=== PATIENT | female | born 1990 | race Hispanic/Latino ===

== ENCOUNTER 2017-02-18 23:57 | Inpatient (IN) | payer BC ==
[2017-02-19 00:19] VITALS: BMI 38.0
[2017-02-19] MEDS ORDERED: HYDROcodone/Acetaminophen 5/325 mg Tablet PO PRN ×2 (01:22)
[2017-02-19] MEDS ORDERED: Ibuprofen 800 MG TAB PO PRN (01:22)
[2017-02-19] MEDS ORDERED: Promethazine HCl 25 MG/ML VIAL IM PRN ×2 (01:22→04:18)
[2017-02-19] MEDS ORDERED: Lidocaine 1% (PF) 30 ML VIAL SC PRN (01:22)
[2017-02-19] MEDS ORDERED: Ondansetron HCl/PF 4 MG/2 ML Vial IVP PRN ×3 (01:22→19:10)
[2017-02-19 01:35] LABS: Hematocrit 41.8 % (36.0-47.0); Mean Platelet Volume 9.3 fL (7.4-10.4); Red Blood Cell (RBC) Count 4.55 mill/uL (4.20-5.40); White Blood Cell (WBC) Count 9.7 thou/uL (4.8-10.8)
[2017-02-19] MEDS: Lactated Ringer's 1,000 ML IV SCH ×8 (01:40→19:09)
[2017-02-19] MEDS ORDERED: Fentanyl 4 mcg/Marc 0.1% Cadd 100 ML ONE (02:57)
[2017-02-19] MEDS ORDERED: ePHEDrine/0.9% NaCl/PF SYRINGE 50 mg/10 ml SLOW IVP PRN (04:18)
[2017-02-19] MEDS ORDERED: diphenhydrAMINE HCl 50 MG/ML 1 ML VIAL IVP PRN (04:18)
[2017-02-19] MEDS ORDERED: Naloxone HCl 0.4 mg/ml Vial IVP PRN ×2 (04:18)
[2017-02-19] MEDS ORDERED: Eucerin (Mineral Oil/Petrolatum,White) 30 gm Jar TOP PRN (04:18)
[2017-02-19] MEDS ORDERED: Lactated Ringer's 500 ML IV PRN (04:18)
[2017-02-19] MEDS ORDERED: Fentanyl 4mcg/Marcaine 0.1% Cassette 100 ML EPIDURAL SCH (04:30)
[2017-02-19] MEDS ORDERED: Communication Order-Pharmacy FS SCH (04:30)
[2017-02-19] MEDS ORDERED: Bupivacaine 0.25% HCL 30 ML VIAL ONE (05:00)
[2017-02-19] MEDS ORDERED: Bupivacaine/Epinephrine 0.25% 30 ML VIAL ONE (05:00)
[2017-02-19] MEDS ORDERED: LR 500 ML/Oxytocin 10 units 500 ML IV SCH (07:45)
[2017-02-19] MEDS: Acetaminophen 325 MG TAB PO PRN (09:55)
[2017-02-19] MEDS: LR / Pitocin 40 units/1000 ml 1,000 ML IV PRN ×2 (15:55→16:54)
[2017-02-19 16:13] LABS: CO2 Tension (PaCO2) 54.8 mmHg (44.0-56.0)
[2017-02-19] MEDS ORDERED: Lanolin Ointment 7 GM TUBE TOP PRN (19:10)
[2017-02-19] MEDS ORDERED: Milk Of Magnesia 30 ML UDCUP PO PRN (19:10)
[2017-02-19] MEDS ORDERED: Bisacodyl 10 MG SUPP PR PRN (19:10)
[2017-02-19] MEDS ORDERED: LR / Pitocin 40 units/1000 ml 1,000 ML IV SCH (19:10)
[2017-02-19] MEDS ORDERED: diphenhydrAMINE HCl 25 MG CAP PO PRN (19:10)
[2017-02-19] MEDS ORDERED: Ferrous Sulfate 325 MG TAB PO SCH (19:15)
[2017-02-19] MEDS ORDERED: Adacel (T-DAP) 0.5 ML VIAL IM ONE (20:00)
[2017-02-19] MEDS ORDERED: Sodium Chloride 0.9% 10 ML ONE (20:57)
[2017-02-19] MEDS ORDERED: Labetalol HCl 100 MG TAB PO SCH (21:00)
[2017-02-19] MEDS: Docusate (Surfak) 240 MG CAP PO SCH (21:01)
--- NOTE | 2017-02-19 21:40 | OP ---
DATE OF DELIVERY: 02/19/2017 OB DELIVERY NOTE Patient delivered a male infant at 1549 on 02/19/2017, by an uncomplicated term spontaneous vaginal delivery. Apgars were 8 and 9, weight 2960 grams, gestational age 39 weeks and 6 days. Placenta de livered spontaneously followed by Pitocin infusion. There were no lacerations. The estimated blood loss was [address] Lopez is the delivering physician. Mother and baby are stable in the room during the immediate .
[2017-02-19] MEDS: Ibuprofen 800 MG TAB PO SCH (23:48)
[2017-02-20] MEDS: Ibuprofen 800 MG TAB PO SCH ×3 (04:11→21:49)
[2017-02-20 04:49] LABS: Hematocrit 38.1 % (36.0-47.0); Mean Platelet Volume 8.5 fL (7.4-10.4); Red Blood Cell (RBC) Count 4.13 mill/uL (4.20-5.40); White Blood Cell (WBC) Count 14.1 thou/uL (4.8-10.8)
--- NOTE | 2017-02-20 08:29 | PRG ---
DATE OF SERVICE: 02/20/2017 The patient is a 26-year-old now day 1, status post a term spontaneous vaginal delivery. She reports that she is tolerating p.o., voiding on her own, ambulating, having decreased lochia. PHYSICAL EXAMINATION: VITAL SIGNS: Blood pressure is 107/58, temperature 99, pulse of 86, respiratory rate of 16. GENERAL: She appears to be in no acute distress. She is alert and oriented, and cooperative and pl easant to interact with. ABDOMEN: Obese, but soft. Fundus is firm at the umbilicus -2. EXTREMITIES: Nontender to palpation bilaterally. CBC , she has a white count 14.1, hemoglobin 12.7, hematocrit 38.1, platelets of 165,000. ASSESSMENT AND PLAN: The patient is day 1, status post term spontaneous vaginal delivery . Anticipate discharge tomorrow. We will continue routine care.
[2017-02-20] MEDS: Docusate (Surfak) 240 MG CAP PO SCH ×2 (08:34→21:49)
[2017-02-20] MEDS: Prenatal Vitamin 1 TAB PO SCH (08:34)
[2017-02-20] MEDS: Acetaminophen 325 MG TAB PO PRN (08:36)
[2017-02-20] MEDS: Ferrous Sulfate 325 MG TAB PO SCH ×2 (08:57→17:14)
[2017-02-21] MEDS: Ibuprofen 800 MG TAB PO SCH (05:21)
--- NOTE | 2017-02-21 07:11 | PDOC.PP ---
Post Progress Note Post Day #: 2 PO intake tolerated: yes Flatus: yes Ambulation: yes Vital Signs (12 hours) Temp Pulse Resp BP 02/20/17 20:00 98.4 F 77 16 123/66 Weight Weight 188 lb - Physical Examination General: NAD Cardiovascular: no m/r/g, RRR Abdominal: + bowel sounds, lochia, no distention, appropriately TTP Extremities: negative homans (B) Psychiatric: A&Ox3 Result Diagrams: 02/20/17 04:20 Additional Labs: Post Labs Hep Bs Antigen NonReactive S/CO (NonReactive) 02/19/17 01:08 - Assessment/Plan doing well 1500 dc
[2017-02-21] MEDS: Ferrous Sulfate 325 MG TAB PO SCH (07:12)
[2017-02-21] MEDS: Prenatal Vitamin 1 TAB PO SCH (08:34)
[2017-02-21] MEDS: Docusate (Surfak) 240 MG CAP PO SCH (08:34)
[2017-02-21 09:00] VITALS: BP 115/74; TEMP 98.2
== END 2017-02-21 12:55 | disposition home or self-care (01) | DRG 775 ==
LOC: L&D/OP 23:57 → L&D 02-19 01:26 → 3SW 02-19 20:38
PROVIDERS: ADMIT Obstetrics & Gynecology; ATTEND Obstetrics & Gynecology
PROC: 10E0XZZ Delivery of Products of Conception, External Approach (ICD-10-PCS; principal; 2017-02-19)
DX: O80 Encounter for full-term uncomplicated delivery (principal); Z37.0 Single live birth; Z3A.39 39 weeks gestation of pregnancy
CPT/HCPCS: 36415; 76815; 82805; 85027; 86780; 87340; A4216; J0595; J2001; J2405; J7120; S0020